=== PATIENT | male | born 1985 | race African-American/Black ===

== ENCOUNTER 2016-12-02 06:06 | Emergency (ER) | payer OTHER ==
[~2016-12-02] VITALS: Ht 182.9 cm; Wt 91.8 kg
[2016-12-02] MEDS ORDERED: IPRATROPIUM BROMIDE (0.02%) 0.5MG/2.5ML NEB HHN STA (06:19)
[2016-12-02] MEDS ORDERED: PREDNISONE 20MG TABLET PO STA (06:19)
[2016-12-02] MEDS ORDERED: ALBUTEROL (0.083%) 2.5MG/3ML NEB HHN STA (06:19)
[2016-12-02 07:50] VITALS: BP 163/87
== END 2016-12-02 07:53 | disposition home or self-care (01) ==
LOC: ER 06:11
DX: J45.901 Unspecified asthma with (acute) exacerbation (principal); R03.0 Elevated blood-pressure reading, without diagnosis of hypertension; Z88.0 Allergy status to penicillin
CPT/HCPCS: 71010; 94644; 99285; J7512; J7611; Z7610

== ENCOUNTER 2017-08-27 09:19 | Emergency (ER) | payer SELFPAY ==
[~2017-08-27] VITALS: Ht 190.5 cm; Wt 104.0 kg
[2017-08-27] MEDS ORDERED: PREDNISONE 20MG TABLET PO STA (10:10)
[2017-08-27] MEDS ORDERED: IPRATROPIUM BROMIDE (0.02%) 0.5MG/2.5ML NEB HHN STA (10:10)
[2017-08-27 10:27] LABS: BASOPHILS % 0.7 % (0.0-2.0); HEMATOCRIT. 44.5 % (42.0-52.0); HEMOGLOBIN. 15.4 g/dL (14.0-18.0); LYMPHOCYTES % 27.9 % (20.0-50.0); MEAN CORPUSCULAR HEMOGLOBIN 29.9 pg (28.0-32.0); MEAN CORPUSCULAR VOLUME 86.5 fL (80.0-94.0); MEAN PLATELET VOLUME 8.1 fl (7.4-10.4); MONOCYTES % 8.4 % (2.0-8.0); PLATELET 263 x1000/uL (130-400); RED BLOOD CELL COUNT 5.15 mill/uL (4.7-6.1); RED CELL DISTRIBUTION WIDTH 13.7 % (11.6-14.6)
[2017-08-27 10:44] LABS: CHLORIDE 109 mEq/L (98-107)
[2017-08-27] MEDS: ALBUTEROL (0.083%) 2.5MG/3ML NEB HHN SCH ×3 (10:45→11:53)
[2017-08-27] MEDS ORDERED: POTASSIUM CHLORIDE 20MEQ/PACKET PO ONE (12:30)
[2017-08-27] MEDS ORDERED: POTASSIUM CHLORIDE 20MEQ TABLET SR PO ONE (12:38)
[2017-08-27 12:57] VITALS: BP 126/66
== END 2017-08-27 13:00 | disposition home or self-care (01) ==
LOC: ER 09:19
DX: J45.901 Unspecified asthma with (acute) exacerbation (principal); E87.6 Hypokalemia; Z88.0 Allergy status to penicillin; Z90.49 Acquired absence of other specified parts of digestive tract
CPT/HCPCS: 36415; 71045; 80048; 85025; 94640; 99285; J7512; J7611

== ENCOUNTER 2017-10-17 04:09 | Emergency (ER) | payer SELFPAY ==
[~2017-10-17] VITALS: Ht 182.9 cm; Wt 95.5 kg
[2017-10-17] MEDS ORDERED: ALBUTEROL (0.083%) 2.5MG/3ML NEB HHN STA ×2 (05:51→06:37)
[2017-10-17] MEDS ORDERED: PREDNISONE 20MG TABLET PO STA (05:51)
[2017-10-17] MEDS ORDERED: IPRATROPIUM BROMIDE (0.02%) 0.5MG/2.5ML NEB HHN STA ×2 (05:51→06:37)
[2017-10-17] MEDS ORDERED: METHYLPREDNISOLONE SOD SUCC 125 MG/2 ML VIAL IV STA (06:37)
[2017-10-17 07:36] LABS: BASOPHILS % 0.6 % (0.0-2.0); EOSINOPHILS % 10.6 % (0.0-5.0); HEMATOCRIT. 45.1 % (42.0-52.0); HEMOGLOBIN. 15.4 g/dL (14.0-18.0); LYMPHOCYTES % 31.8 % (20.0-50.0); MEAN CORPUSCULAR HEMOGLOBIN 29.7 pg (28.0-32.0); MEAN CORPUSCULAR VOLUME 86.9 fL (80.0-94.0); MEAN PLATELET VOLUME 8.6 fl (7.4-10.4); MONOCYTES % 8.3 % (2.0-8.0); NEUTROPHILS % 48.7 % (40.0-76.0); PLATELET 234 x1000/uL (130-400); RED BLOOD CELL COUNT 5.19 mill/uL (4.7-6.1); RED CELL DISTRIBUTION WIDTH 13.8 % (11.6-14.6)
[2017-10-17 07:39] LABS: CHLORIDE 110 mEq/L (98-107)
[2017-10-17 11:11] VITALS: BP 141/86
== END 2017-10-17 11:31 | disposition home or self-care (01) ==
LOC: ER 04:09
DX: J45.901 Unspecified asthma with (acute) exacerbation (principal); R03.0 Elevated blood-pressure reading, without diagnosis of hypertension; R94.31 Abnormal electrocardiogram [ECG] [EKG]; Z88.0 Allergy status to penicillin
CPT/HCPCS: 36415; 71045; 80048; 85025; 93005; 94640; 94644; 96374; 99285; J2930; J7512; J7611; Z7610

== ENCOUNTER 2020-02-08 12:39 | Emergency (ER) | payer OTHER ==
[~2020-02-08] VITALS: Ht 182.9 cm; Wt 100.0 kg
[2020-02-08 16:14] LABS: CLARITY URINE CLEAR (CLEAR); COLOR URINE YELLOW (YELLOW); KETONES URINE NEGATIVE (NEGATIVE); LEUKOCYTE ESTERASE URINE NEGATIVE (NEGATIVE); NITRITE URINE NEGATIVE (NEGATIVE); OCCULT BLOOD URINE NEGATIVE (NEGATIVE); PH URINE 7.5 (4.5-8.0); PROTEIN URINE NEGATIVE (NEGATIVE); SPECIFIC GRAVITY URINE 1.025 (1.005-1.030)
[2020-02-08] MEDS ORDERED: CEFTRIAXONE SODIUM 1 G/VIAL IM ONE (17:15)
[2020-02-08] MEDS ORDERED: LIDOCAINE HCL 1% 20ML VIAL (Pyxis) INJ INFIL ONE (17:15)
[2020-02-08 18:16] VITALS: BP 148/86
== END 2020-02-08 18:25 | disposition home or self-care (01) ==
LOC: ER 12:39
DX: N34.2 Other urethritis (principal)
CPT/HCPCS: 81003; 87591; 93005; 96372; 99284; J0696; J3490

== ENCOUNTER 2021-11-16 06:32 | Emergency (ER) | payer OTHER ==
[~2021-11-16] VITALS: Ht 182.9 cm; Wt 123.0 kg
[2021-11-16] MEDS ORDERED: IBUPROFEN 400MG TABLET PO ONE (08:30)
[2021-11-16] MEDS ORDERED: IBUP-2028 MT (08:35)
[2021-11-16 09:35] VITALS: BP 128/76
== END 2021-11-16 09:38 | disposition home or self-care (01) ==
LOC: ER 06:32
DX: M25.512 Pain in left shoulder (principal); J45.909 Unspecified asthma, uncomplicated; Z90.49 Acquired absence of other specified parts of digestive tract
CPT/HCPCS: 73030; 99283

== ENCOUNTER 2023-08-28 22:30 | Emergency (ER) | payer OTHER ==
[~2023-08-28] VITALS: Ht 182.9 cm; Wt 138.0 kg
[~2023-08-28 22:30] MED LIST: IBUP-2028 MT
[2023-08-28 23:06] VITALS: BP 152/98; TEMP 97.7
[2023-08-28 23:49] VITALS: PULSE 101; RESP 18; O2SAT 97
[2023-08-28] MEDS: ALBUTEROL (0.083%) 2.5MG/3ML NEB HHN STA (23:49)
[2023-08-28] MEDS: IPRATROPIUM BROMIDE (0.02%) 0.5MG/2.5ML NEB HHN STA (23:49)
[2023-08-29] MEDS ORDERED: P50 MT (01:20)
[2023-08-29] MEDS ORDERED: ALBU18HF2 IH (01:20)
[2023-08-29] MEDS: METHYLPREDNISOLONE SOD SUCC 125MG/2ML (ACT-O-VIAL) IM STA (01:21)
== END 2023-08-29 03:18 | disposition home or self-care (01) ==
LOC: ER 22:30
DX: J45.901 Unspecified asthma with (acute) exacerbation (principal); Z88.0 Allergy status to penicillin
CPT/HCPCS: 71045; 94640; 99283; 96372; J2930; Z7610 ×3

== ENCOUNTER 2024-03-06 06:53 | Emergency (ER) | payer OTHER ==
[~2024-03-06] VITALS: Ht 203.2 cm; Wt 147.0 kg
[~2024-03-06 06:53] MED LIST changes: +ALBU18HF2 IH; +P50 MT
[2024-03-06 07:00] VITALS: TEMP 98.3
[2024-03-06] MEDS: PREDNISONE 20MG TABLET PO STA (07:38)
[2024-03-06 07:56] VITALS: PULSE 80; RESP 22; O2SAT 92
[2024-03-06] MEDS: IPRATROPIUM BROMIDE (0.02%) 0.5MG/2.5ML NEB HHN STA (07:56)
[2024-03-06] MEDS: ALBUTEROL (0.083%) 2.5MG/3ML NEB HHN STA (07:56)
[2024-03-06] MEDS ORDERED: ALBU18HF2 IH (08:45)
[2024-03-06] MEDS ORDERED: P50 PO (08:45)
[2024-03-06 09:15] VITALS: BP 126/77; PULSE 89; RESP 16; O2SAT 99
== END 2024-03-06 09:17 | disposition home or self-care (01) ==
LOC: ER 07:05
DX: J45.901 Unspecified asthma with (acute) exacerbation (principal); Z88.0 Allergy status to penicillin; Z90.49 Acquired absence of other specified parts of digestive tract
CPT/HCPCS: 94640; 99283; J7512; Z7610 ×3

== ENCOUNTER 2025-05-31 01:16 | Emergency (ER) | payer OTHER ==
[~2025-05-31] VITALS: Ht 182.9 cm; Wt 136.0 kg
[~2025-05-31 01:16] MED LIST changes: +P50 PO
[2025-05-31] MEDS ORDERED: IBUPROFEN 800MG TABLET PO ONE (02:30)
[2025-05-31] MEDS: IPRATROPIUM/ALBUTEROL 0.5-3(2.5)MG/3ML NEB HHN ONE (02:53)
[2025-05-31 02:54] VITALS: PULSE 80; RESP 18; O2SAT 95
[2025-05-31] MEDS: KETOROLAC 30MG/ML VIAL IM ONE (02:56)
[2025-05-31] MEDS: DEXAMETHASONE 10 MG/ML VIAL IM ONE (02:57)
[2025-05-31] MEDS ORDERED: ALBU18HF2 IH (04:00)
[2025-05-31] MEDS ORDERED: GUAI-450 MT (04:00)
[2025-05-31] MEDS ORDERED: BENZ1LOZ73 MM (04:00)
[2025-05-31] MEDS ORDERED: P50 MT (04:00)
[2025-05-31] MEDS ORDERED: IBUP-1455 MT (04:00)
[2025-05-31 04:14] VITALS: BP 144/86; PULSE 75; RESP 16; TEMP 36.9; O2SAT 99
== END 2025-05-31 04:15 | disposition home or self-care (01) ==
LOC: ER 01:16
DX: J45.901 Unspecified asthma with (acute) exacerbation (principal); J02.9 Acute pharyngitis, unspecified; R05.9 Cough, unspecified; Z88.0 Allergy status to penicillin; Z90.49 Acquired absence of other specified parts of digestive tract; B97.89 Other viral agents as the cause of diseases classified elsewhere; Z79.52 Long term (current) use of systemic steroids
CPT/HCPCS: 87430; 87070; 71045; 94640; 98960; 96372; 99284; J1100; J1885; Z7610 ×3; 94070; 94664